=== PATIENT | male | born 1970 | race Asian ===

== ENCOUNTER 2016-04-23 05:49 | Day surgery (SDC) | payer OTHER ==
[~2016-04-23] VITALS: Ht 162.6 cm; Wt 69.4 kg
[2016-04-23 06:33] VITALS: Ht 162.6 cm; Wt 69.4 kg
[2016-04-23] MEDS ORDERED: PANT20TA3 PO (06:39)
[2016-04-23 07:02] VITALS: BP 117/73; PULSE 79; RESP 14
[2016-04-23] MEDS ORDERED: FENTAnyl 50 MCG/ML VIAL ONE (07:36)
[2016-04-23] MEDS ORDERED: MIDAZOLAM 1 MG/ML 2 ML INJ ONE (07:36)
[2016-04-23 08:00] VITALS: BP 101/62; PULSE 66; RESP 18
--- NOTE | 2016-04-23 13:21 | GILP ---
DATE OF PROCEDURE: 04/23/2016 NAME OF PROCEDURES: Esophagogastroduodenoscopy and biopsy. SURGEON: Rashida Ledbetter MD PREOPERATIVE DIAGNOSES: 1. Abdominal pain. 2. Chronic heartburn. POSTOPERATIVE DIAGNOSES: 1. Small hiatal hernia. 2. Gastroesophageal reflux disease. 3. Gastritis. 4. Gastric mucosal biopsies were taken for Helicobacter pylori test. INDICATION FOR THE PROCEDURE: The patient is a 46-year-old male patient who had upper abdominal hernan n and chronic heartburn, not responding to therapy. The patient was scheduled for endoscopic examin [facility] for further evaluation. The procedure and possible complications were well explained to the patient, he understood and conse nted to the procedure. DESCRIPTION OF PROCEDURE: Under the influence of fentanyl and Versed, the gastroscope was carefully introduced into the esophagus and under direct vision, it was advanced to the stomach and through t he pylorus into the duodenal bulb and descending duodenum. FINDINGS: ESOPHAGUS: The patient had a small hiatal hernia and gastroesophageal reflux disease. STOMACH: He had gastritis. Gastric mucosal biopsies were taken for H. pylori test. DUODENUM: Normal. The patient tolerated the procedure very well and there was no complication from the procedure. At the end of the procedure, he was awake with stable vital signs and he was discharged home to the car e of his family. IMPRESSION: Please see postoperative diagnoses. PLAN: 1. Continue pantoprazole. 2. Add Zantac 300 mg p.o. at bedtime. 3. Await H. pylori test report. Dictated By: RASHIDA HUSSEIN/ARINA Conf#: [id number] DID#: [id number]
== END 2016-04-23 08:50 | disposition home or self-care (01) ==
LOC: GIL 05:49
PROVIDERS: ATTEND Internal Medicine Gastroenterology
DX: K44.9 Diaphragmatic hernia without obstruction or gangrene (principal); K21.9 Gastro-esophageal reflux disease without esophagitis; K29.70 Gastritis, unspecified, without bleeding
CPT/HCPCS: 43239; 87081; J2250; J3010